=== PATIENT | female | born 1950 | race Caucasian/White ===

== ENCOUNTER 2021-09-03 13:56 | Outpatient (CLI) | payer MEDICARE | END 2021-09-03 13:57 | disposition home or self-care (01) | LOC: CSHMAMMO 13:56 | PROVIDERS: ATTEND Family Medicine Sports Medicine | DX: Z12.31 Encounter for screening mammogram for malignant neoplasm of breast (principal); Z13.820 Encounter for screening for osteoporosis; Z12.2 Encounter for screening for malignant neoplasm of respiratory organs; Z78.0 Asymptomatic menopausal state; Z91.89 Other specified personal risk factors, not elsewhere classified; Z80.3 Family history of malignant neoplasm of breast | CPT/HCPCS: 71271; 77063; 77067; 77080 ==

== ENCOUNTER 2022-11-05 13:29 | Outpatient (CLI) | payer MEDICARE | END 2022-11-05 13:30 | disposition home or self-care (01) | LOC: CSHMAMMO 13:29 | PROVIDERS: ATTEND Family Medicine Sports Medicine | DX: Z12.31 Encounter for screening mammogram for malignant neoplasm of breast (principal) | CPT/HCPCS: 77063; 77067 ==

== ENCOUNTER 2023-12-03 13:13 | Outpatient (CLI) | payer MEDICARE | END 2023-12-03 13:14 | disposition home or self-care (01) | LOC: CSHMAMMO 13:13 | PROVIDERS: ATTEND Family Medicine Sports Medicine | DX: R92.30 Dense breasts, unspecified (principal) | CPT/HCPCS: 77065; G0279 ==